=== PATIENT | female | born 1935 | race Caucasian/White ===

== ENCOUNTER 2023-07-28 08:04 | Outpatient (AMB) | payer MEDICARE, SELFPAY ==
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
[2023-07-28 08:21] VITALS: BP 112/64; PULSE 81; O2SAT 70
== END 2023-07-28 08:59 | disposition home or self-care (01) ==
PROVIDERS: PCP Internal Medicine; Visit Provider Nurse Practitioner Family
DX: I69.398 Other sequelae of cerebral infarction (principal); R56.9 Unspecified convulsions
CPT/HCPCS: 99204

== ENCOUNTER → 2023-07-28 08:04 | Outpatient (BNVA) | payer MEDICARE, SELFPAY | PROVIDERS: PCP Internal Medicine; Visit Provider Nurse Practitioner Family | DX: I69.398 Other sequelae of cerebral infarction (principal); R56.9 Unspecified convulsions | CPT/HCPCS: 99202 ==

== ENCOUNTER 2024-06-10 07:56 | Outpatient (AMB) | payer MEDICARE, SELFPAY ==
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
[2024-06-10 07:58] VITALS: BP 132/62; PULSE 80; RESP 16; BMI 19.8
== END 2024-06-10 08:30 | disposition home or self-care (01) ==
PROVIDERS: PCP Internal Medicine; Visit Provider Psychiatry & Neurology Neurology
DX: I69.398 Other sequelae of cerebral infarction (principal); R56.9 Unspecified convulsions
CPT/HCPCS: 99214; G2211

== ENCOUNTER → 2024-06-10 07:56 | Outpatient (BNVA) | payer MEDICARE, SELFPAY | PROVIDERS: PCP Internal Medicine; Visit Provider Psychiatry & Neurology Neurology | DX: I69.398 Other sequelae of cerebral infarction (principal); R56.9 Unspecified convulsions | CPT/HCPCS: 99212 ==